=== PATIENT | female | born 1990 | race Hispanic/Latino ===

== ENCOUNTER 2018-10-26 07:21 | Emergency (ER) | payer SELFPAY ==
[2018-10-26] MEDS ORDERED: IBUPROFEN PO ONE (08:47)
--- NOTE | 2018-10-26 08:49 | Emergency Department Report ---
HPI <CHELSEY ALONSOYARONTERESO Cortez - Last Filed: 10/26/18 10:46> - HPI HPI: 28-year-old female presents to the emergency department with complaint of some right upper chest/chest wall pain, just below the clavicle, that started last night. She denies any recent trauma or inciting events. The pain does not change with palpation or certain movements and has been constant and is a sharp pain. She denies any past medical history. She is a tobacco smoker. No recent travel or sick contacts at home. <AJAMARILIS S - Last Filed: 10/26/18 12:47> - General Chief Complaint: Earache Time Seen by Provider: 10/26/18 08:47 ED Past Medical Hx - Past Medical History Previous Medical History?: No - Surgical History Past Surgical History?: No - Social History Smoking Status: Current Every Day Smoker Substance Use Type: None <AJAMARILIS García - Last Filed: 10/26/18 12:47> ED Review of Systems ROS: Stated complaint: CHEST PAIN RT SIDE UP TO EAR Other details as noted in HPI <GAVINSHANEL A - Last Filed: 10/26/18 10:46> ROS: Stated complaint: CHEST PAIN RT SIDE UP TO EAR Other details as noted in HPI Comment: All other systems reviewed and negative Constitutional: denies: chills, fever Eyes: denies: eye pain, vision change ENT: denies: ear pain, throat pain Respiratory: denies: cough, shortness of breath Cardiovascular: chest pain. denies: palpitations Gastrointestinal: denies: abdominal pain, vomiting Genitourinary: denies: dysuria, discharge Musculoskeletal: denies: back pain, arthralgia Skin: denies: rash, lesions Neurological: denies: headache, weakness <AJAMARILIS García - Last Filed: 10/26/18 12:47> Physical Exam - Physical Exam Vital Signs: Vital Signs 10/26/18 10/26/18 07:26 09:18 Temperature 98.3 F Pulse Rate 83 Respiratory 16 18 Rate Blood Pressure 127/83 O2 Sat by Pulse 99 Oximetry Physical Exam: GENITOURINARY: External genitalia without erythema, exudate or discharge. Vaginal vault is with mild small whitish discharge. Wet prep samples collected. Cervix is of normal color without lesion. Cervical os is closed. No bleeding noted. Uterus is noted to be of normal size and nontender. No cervical motion tenderness. No masses are palpated. The adnexa are without masses or tenderness. <SHANEL ALONSO A - Last Filed: 10/26/18 10:46> - Physical Exam Vital Signs: Vital Signs 10/26/18 07:26 Temperature 98.3 F Pulse Rate 83 Respiratory 16 Rate Blood Pressure 127/83 O2 Sat by Pulse 99 Oximetry Physical Exam: GENERAL: The patient is well-developed well-nourished. HEENT: Normocephalic. Atraumatic. Patient has moist mucous membranes. EYES: Extraocular motions are intact. NECK: Supple. Trachea is midline. CHEST/LUNGS: Clear to auscultation. There is no respiratory distress noted. The right upper lateral chest pain is not reproducible to palpation. HEART/CARDIOVASCULAR: Regular. There is no tachycardia. There is no obvious murmur. ABDOMEN: There is no abdominal distention. SKIN: Skin is warm and dry. NEURO: The patient is awake, alert, and oriented. The patient is cooperative. The patient has no focal neurologic deficits. The patient has normal speech. MUSCULOSKELETAL: There is no tenderness or deformity. There is no evidence of acute injury. <AMARILIS ROCHA S - Last Filed: 10/26/18 12:47> ED Course Vital Signs 10/26/18 10/26/18 07:26 09:18 Temperature 98.3 F Pulse Rate 83 Respiratory 16 18 Rate Blood Pressure 127/83 O2 Sat by Pulse 99 Oximetry <SHANEL ALONSO A - Last Filed: 10/26/18 10:46> Vital Signs 10/26/18 07:26 Temperature 98.3 F Pulse Rate 83 Respiratory 16 Rate Blood Pressure 127/83 O2 Sat by Pulse 99 Oximetry <AMARILIS ROCHA S - Last Filed: 10/26/18 12:47> ED Medical Decision Making - Radiology Data Radiology results: image reviewed interpreted by me: Chest x-ray does not show any pneumothorax, pleural effusion, pneumonia or obvious focal consolidation. - Medical Decision Making Patient presents with complaint of some pain to the right upper chest/chest wall. While the pain was not reproducible to palpation of the chest wall, the patient does appear very low suspicion for coronary artery disease. Her only risk factor is smoking. The pain is almost just under the clavicle. X-ray did not show any pneumothorax, pneumonia, focal consolidation, pleural effusions, or any other acute process. She was given a dose of ibuprofen which did help decrease her discomfort. Later in her workup, the patient complained of some vaginal discharge. A wet prep and pelvic examination was done that showed less than 20% clue cells and no signs of trichomoniasis or yeast. Patient was given some referrals for [facility] and primary care. She will return to the ER with any worsening of her symptoms or any acute distress. - Differential Diagnosis costochondritis, pneumothorax, pneumonia, BV, trichomoniasis <AMARILIS ROCHA S - Last Filed: 10/26/18 12:47> Critical care attestation.: If time is entered above; I have spent that time in minutes in the direct care of this critically ill patient, excluding procedure time. <SHANEL ALONSO A - Last Filed: 10/26/18 10:46> Critical Care Time: No Critical care attestation.: If time is entered above; I have spent that time in minutes in the direct care of this critically ill patient, excluding procedure time. <AMARILIS ROCHA S - Last Filed: 10/26/18 12:47> ED Disposition <SHANEL ALONSO A - Last Filed: 10/26/18 10:46> Is pt being admited?: No Time of Disposition: 11:19 <AMARILIS ROCHA S - Last Filed: 10/26/18 12:47> Clinical Impression: Chest wall pain, Otalgia of right ear, Vaginal discharge Disposition: TO HOME OR SELFCARE Condition: Stable Instructions: Chest Pain (ED) Additional Instructions: Please follow up with a primary care physician and [facility]. Return to the emergency Department with any worsening of your symptoms or any acute distress. Referrals: [facility] [Outside] - 3-5 Days [facility] [Provider Group] - 3-5 Days [facility] [Provider Group] - 3-5 Days Forms: Work/School Release Form(ED)
--- NOTE | 2018-10-26 09:11 | XRay Report ---
ROUTINE CHEST, TWO VIEWS: HISTORY: Right sided chest pain. The trachea, heart, mediastinal contour, lung painting and bony thorax are unremarkable. IMPRESSION: Unremarkable chest x-ray.
[2018-10-26 11:35] VITALS: BP 123/75
== END 2018-10-26 11:34 | disposition home or self-care (01) ==
LOC: ED 07:21
DX: R07.89 Other chest pain (principal); H92.01 Otalgia, right ear; N89.8 Other specified noninflammatory disorders of vagina; F17.200 Nicotine dependence, unspecified, uncomplicated
CPT/HCPCS: 71046; 87210; 87591